=== PATIENT | male | born 1955 | race Two or more races ===

== ENCOUNTER 2024-05-15 10:08 | Outpatient (CLI) | payer OTHER ==
[2024-05-15 11:30] LABS: CALCIUM 9.6 mg/dL (8.5-10.1); CREATININE SERUM 0.96 mg/dL (0.70-1.30); GFR 77.66; POTASSIUM 4.48 mEq/L (3.5-5.1)
== END 2024-05-15 10:09 | disposition home or self-care (01) ==
LOC: LAB 10:08
DX: Z01.812 Encounter for preprocedural laboratory examination (principal)

== ENCOUNTER 2024-05-15 11:10 | Outpatient (CLI) | payer OTHER, BC | END 2024-05-15 11:18 | disposition home or self-care (01) | LOC: MRI 11:10 | DX: I63.9 Cerebral infarction, unspecified (principal) | CPT/HCPCS: 70552; Q9965 ==